=== PATIENT | male | born 1990 | race African-American/Black ===

== ENCOUNTER 2020-07-16 16:53 | Emergency (ER) | payer SELFPAY ==
[2020-07-16] MEDS ORDERED: cefTRIAXone\\ROCEPHIN 250 MG VIAL ONE (17:42)
[2020-07-16] MEDS ORDERED: Azithromycin 250 MG TAB ONE (17:42)
[2020-07-16] MEDS ORDERED: Lidocaine 1% PF 5 ML VIAL ONE (17:42)
[2020-07-16 17:46] LABS: Bacteria/HPF None Seen HPF (None Seen); Bilirubin Negative (Negative); Blood, Urine Negative (Negative); Clarity Clear (Clear); Glucose, Urine (Dipstick) Normal (Negative); Ketone, Urine Negative (Negative); Leukocyte 500 Leu/uL (Negative); Nitrite Negative (Negative); Protein, Urine (Dipstick) Negative (Neg-Trace); RBC/HPF 0-3 HPF (0-3); Specific Gravity, Urine 1.028 (1.002-1.036); Squamous Epithelial 0-3 HPF (0-3); Urobilinogen Normal mg/dL (Less than 2); WBC/HPF Greater than 50 HPF (0-3); pH, Urine 5.5 (5.0-9.0)
[2020-07-20 15:47] LABS: Chlam.trachomatis by PCR,Urine DETECTED (NotDetected)
== END 2020-07-16 18:13 | disposition home or self-care (01) ==
LOC: ERS 16:53
DX: A64 Unspecified sexually transmitted disease (principal)
CPT/HCPCS: 81001; 87491; 87591; 96372; 99283; J0696

== ENCOUNTER 2020-09-22 16:46 | Emergency (ER) | payer SELFPAY ==
[2020-09-22] MEDS ORDERED: Lidocaine 1% (PF) 30 ML VIAL ONE (18:13)
[2020-09-22] MEDS ORDERED: cefTRIAXone\\ROCEPHIN 500 MG VIAL ONE (18:13)
[2020-09-25 19:20] LABS: Chlam.trachomatis by PCR,Urine Not Detected (NotDetected)
== END 2020-09-22 18:25 | disposition home or self-care (01) ==
LOC: ERS 16:46
DX: Z20.2 Contact with and (suspected) exposure to infections with a predominantly sexual mode of transmission (principal)
CPT/HCPCS: 87491; 87591; 96372; 99283; J0696; J2001

== ENCOUNTER 2020-10-22 17:12 | Emergency (ER) | payer SELFPAY | END 2020-10-22 19:13 | disposition home or self-care (01) | LOC: ERS 17:12 | DX: R10.84 Generalized abdominal pain (principal) | CPT/HCPCS: 99281 ==

== ENCOUNTER 2020-11-12 21:24 | Emergency (ER) | payer SELFPAY ==
[2020-11-12 21:56] LABS: #Lymphocytes 1.2 thou/uL (1.20-3.40); #Monocytes 0.5 thou/uL (0.11-0.59); #Neutrophils 3.1 thou/uL (1.40-6.50); %Basophils 0.3 % (0.0-1.0); %Eosinophils 0.3 % (0.0-10.0); %Lymphocytes 24.4 % (21.0-51.0); Hemoglobin 16.4 g/dL (14.0-18.0); Mean Corpuscular HGB CONC 32.7 g/dL (32.0-36.0); Mean Corpuscular Hemoglobin 28.9 pg (27.0-31.0); Mean Corpuscular Volume 88.5 fL (78.0-98.0); Mean Platelet Volume 7.1 fL (7.4-10.4); Platelet Count 264 thou/uL (130-400); RBC Distribution Width 12.3 % (11.5-14.5); Red Blood Cell (RBC) Count 5.67 mill/uL (4.70-6.10); White Blood Cell (WBC) Count 4.7 thou/uL (4.8-10.8)
[2020-11-12 22:21] LABS: ALT (SGPT) 17 U/L (8-55); AST (SGOT) 16 U/L (5-34); Albumin 4.1 g/dL (3.5-5.0); Alkaline Phosphatase 79 U/L (40-110); Anion Gap 14 mmol/L (10-20); BUN (Urea Nitrogen) 17 mg/dL (8.9-20.6); Bilirubin, Total 0.6 mg/dL (0.2-1.2); Calc. Creatinine Clearance 0 mL/min (70-130); Calcium 8.9 mg/dL (7.8-10.44); Carbon Dioxide 27 mmol/L (22-29); Chloride 103 mmol/L (98-107); Globulin 2.9 g/dL (2.4-3.5); Glucose 117 mg/dL (70-105); Lipase 16 U/L (8-78); Potassium 3.9 mmol/L (3.5-5.1); Sodium 140 mmol/L (136-145)
[2020-11-12] MEDS ORDERED: Ondansetron ODT 4 MG TAB ONE (23:34)
== END 2020-11-12 23:27 | disposition home or self-care (01) ==
LOC: ERS 21:24
DX: R11.2 Nausea with vomiting, unspecified (principal); R19.7 Diarrhea, unspecified
CPT/HCPCS: 36415; 80053; 83690; 85025; 99284; Q0162

== ENCOUNTER 2021-04-09 19:59 | Emergency (ER) | payer SELFPAY | END 2021-04-09 21:38 | disposition home or self-care (01) | LOC: ERS 19:59 | DX: R11.0 Nausea (principal) | CPT/HCPCS: 99283 ==

== ENCOUNTER 2021-04-28 21:49 | Emergency (ER) | payer SELFPAY ==
[2021-04-29] MEDS ORDERED: Ondansetron ODT 4 MG TAB ONE (00:19)
== END 2021-04-29 00:35 | disposition home or self-care (01) ==
LOC: ERS 21:49
DX: R11.0 Nausea (principal)
CPT/HCPCS: 99283; Q0162

== ENCOUNTER 2021-05-14 21:32 | Emergency (ER) | payer SELFPAY | END 2021-05-14 22:00 | disposition home or self-care (01) | LOC: ERS 21:32 | DX: R11.2 Nausea with vomiting, unspecified (principal) | CPT/HCPCS: 99283 ==

== ENCOUNTER 2021-05-28 02:26 | Emergency (ER) | payer SELFPAY | END 2021-05-28 02:59 | disposition home or self-care (01) | LOC: ERS 02:26 | DX: R11.2 Nausea with vomiting, unspecified (principal) | CPT/HCPCS: 99281 ==

== ENCOUNTER 2021-06-09 12:40 | Emergency (ER) | payer SELFPAY | END 2021-06-09 13:35 | disposition home or self-care (01) | LOC: ERS 12:40 | DX: R11.2 Nausea with vomiting, unspecified (principal) | CPT/HCPCS: 99283 ==

== ENCOUNTER 2021-07-02 17:14 | Emergency (ER) | payer BC ==
[2021-07-02] MEDS ORDERED: cefTRIAXone\\ROCEPHIN 500 MG VIAL ONE (17:42)
[2021-07-02] MEDS ORDERED: Lidocaine 1% w/Epinephrine 1:100K 20 ML VIAL ONE (17:42)
[2021-07-02] MEDS ORDERED: Lidocaine 1% PF 5 ML VIAL ONE (17:43)
[2021-07-04 09:15] LABS: Chlam.trachomatis by PCR,Urine Not Detected (NotDetected)
== END 2021-07-02 17:50 | disposition home or self-care (01) ==
LOC: ERS 17:14
DX: N34.2 Other urethritis (principal)
CPT/HCPCS: 87491; 87591; 96372; 99283; J0696

== ENCOUNTER 2021-07-04 23:30 | Emergency (ER) | payer BC | END 2021-07-05 02:45 | disposition left against medical advice (07) | LOC: ERS 23:30 | DX: Z53.21 Procedure and treatment not carried out due to patient leaving prior to being seen by health care provider (principal) ==

== ENCOUNTER 2021-07-05 13:44 | Emergency (ER) | payer BC ==
[2021-07-05] MEDS ORDERED: Ondansetron ODT 4 MG TAB ONE (13:55)
[2021-07-05] MEDS ORDERED: Azithromycin 250 MG TAB ONE (13:55)
== END 2021-07-05 14:22 | disposition home or self-care (01) ==
LOC: ERS 13:44
DX: A54.01 Gonococcal cystitis and urethritis, unspecified (principal); T36.4X5A Adverse effect of tetracyclines, initial encounter
CPT/HCPCS: 99283; Q0162

== ENCOUNTER 2021-07-23 19:37 | Emergency (ER) | payer BC | END 2021-07-23 21:24 | disposition home or self-care (01) | LOC: ERS 19:37 | DX: R11.0 Nausea (principal) | CPT/HCPCS: 99281 ==

== ENCOUNTER 2021-07-24 20:42 | Emergency (ER) | payer BC | END 2021-07-24 22:30 | disposition home or self-care (01) | LOC: ERS 20:42 | DX: R11.0 Nausea (principal) | CPT/HCPCS: 99283 ==